=== PATIENT | female | born 1975 | race Two or more races ===

== ENCOUNTER 2020-05-09 15:38 | Emergency (ER) | payer OTHER ==
[~2020-05-09] VITALS: Ht 170.2 cm; Wt 65.8 kg
[2020-05-09] MEDS ORDERED: PROGESTERONA (16:15)
[2020-05-09] MEDS ORDERED: ESTROGENO (16:16)
== END 2020-05-09 20:23 | disposition home or self-care (01) ==
LOC: ER 15:38
DX: R10.2 Pelvic and perineal pain (principal)

== ENCOUNTER 2020-07-28 09:50 | Outpatient (CLI) | payer OTHER ==
[~2020-07-28 09:50] MED LIST: ESTROGENO; PROGESTERONA
== END 2020-07-28 10:05 | disposition home or self-care (01) ==
LOC: SONOGRAMA 09:50
PROVIDERS: ATTEND General Practice
DX: R22.1 Localized swelling, mass and lump, neck (principal)

== ENCOUNTER 2020-07-31 10:29 | Outpatient (CLI) | payer OTHER | END 2020-07-31 17:05 | disposition home or self-care (01) | LOC: OFIC 805 10:29 | PROVIDERS: ATTEND Otolaryngology | DX: E04.1 Nontoxic single thyroid nodule (principal) ==

== ENCOUNTER 2020-08-03 10:37 | Outpatient (CLI) | payer OTHER | END 2020-08-03 10:39 | disposition home or self-care (01) | LOC: SONOGRAMA 10:37 | PROVIDERS: ATTEND Pathology Anatomic Pathology & Clinical Pathology | DX: E04.8 Other specified nontoxic goiter (principal) ==

== ENCOUNTER 2021-02-14 13:43 | Outpatient (CLI) | payer OTHER | END 2021-02-14 14:00 | disposition home or self-care (01) | LOC: SONOGRAMA 13:43 → MAMO-SONO 14:45 | PROVIDERS: ATTEND Otolaryngology | DX: E04.8 Other specified nontoxic goiter (principal) ==

== ENCOUNTER 2021-03-22 10:48 | Outpatient (CLI) | payer OTHER | END 2021-03-22 11:05 | disposition home or self-care (01) | LOC: SONOGRAMA 10:48 | PROVIDERS: ATTEND Pathology Anatomic Pathology & Clinical Pathology | DX: E04.1 Nontoxic single thyroid nodule (principal) ==

== ENCOUNTER 2021-08-16 10:48 | Outpatient (CLI) | payer OTHER | END 2021-08-16 10:51 | disposition home or self-care (01) | LOC: SONOGRAMA 10:48 | PROVIDERS: ATTEND Otolaryngology | DX: E04.9 Nontoxic goiter, unspecified (principal) ==

== ENCOUNTER 2021-08-29 14:45 | Outpatient (CLI) | payer OTHER | END 2021-08-29 15:01 | disposition home or self-care (01) | LOC: RAD 14:45 | PROVIDERS: ATTEND General Practice | DX: M25.562 Pain in left knee (principal); M25.561 Pain in right knee; M25.572 Pain in left ankle and joints of left foot; M25.571 Pain in right ankle and joints of right foot ==

== ENCOUNTER 2021-11-29 11:39 | Outpatient (CLI) | payer OTHER | END 2021-11-29 11:54 | disposition home or self-care (01) | LOC: SONOGRAMA 11:39 | PROVIDERS: ATTEND Otolaryngology | DX: E04.9 Nontoxic goiter, unspecified (principal) ==

== ENCOUNTER 2022-03-07 12:02 | Outpatient (CLI) | payer OTHER | END 2022-03-07 12:04 | disposition home or self-care (01) | LOC: SONOGRAMA 12:02 | PROVIDERS: ATTEND Otolaryngology | DX: E04.9 Nontoxic goiter, unspecified (principal) ==

== ENCOUNTER 2022-03-14 11:46 | Outpatient (CLI) | payer OTHER | END 2022-03-14 11:59 | disposition home or self-care (01) | LOC: MAMO-SONO 11:46 | PROVIDERS: ATTEND Specialist | DX: Z12.31 Encounter for screening mammogram for malignant neoplasm of breast (principal) ==

== ENCOUNTER 2022-03-19 13:23 | Outpatient (CLI) | payer OTHER | END 2022-03-19 13:34 | disposition home or self-care (01) | LOC: SONOGRAMA 13:23 | PROVIDERS: ATTEND General Practice | DX: Z12.31 Encounter for screening mammogram for malignant neoplasm of breast (principal); N64.4 Mastodynia ==